=== PATIENT | male | born 1980 | race Caucasian/White ===

== ENCOUNTER 2020-08-07 16:03 | Emergency (ER) | payer BC ==
[~2020-08-07] VITALS: Ht 165.1 cm; Wt 72.6 kg
--- NOTE | 2020-08-07 16:05 | NUR ---
Pt triaged and placed in tent.
--- NOTE | 2020-08-07 16:10 | NUR ---
Pt walked in to ER with c/o left groin pain 7/10 intermittently throughout the day. Reports h/o hernia on right side. V/S stable, pt is afebrile. No distress noted.
[2020-08-07 16:17] VITALS: BP_SYST 165
--- NOTE | 2020-08-07 16:50 | NUR ---
ER Dr. Fontana at bedside examining patient.
[2020-08-07 17:10] VITALS: BP_SYST 165
--- NOTE | 2020-08-07 17:11 | NUR ---
Patient given written and verbal discharge instructions and verbalizes understanding. ER MD discussed with patient the results and treatment provided. Patient in stable condition. ID arm band removed. No prescriptions given. Patient educated on pain management and to follow up with PMD. Pain Scale 0. Opportunity for questions provided and answered. Medication side effect fact sheet provided.
== END 2020-08-07 17:10 | disposition home or self-care (01) ==
LOC: SED 16:03
DX: K46.9 Unspecified abdominal hernia without obstruction or gangrene (principal)
CPT/HCPCS: 99281; J7030